=== PATIENT | female | born 1945 | race Caucasian/White ===

== ENCOUNTER 2019-12-08 08:00 | Outpatient (CLI) | payer MEDICARE, MEDICAID, SELFPAY ==
--- NOTE | 2019-12-08 08:17 | PCRCNOTE ---
PATIENT REFUSED ABG
--- NOTE | 2019-12-12 14:11 | WPDSIXMINUTE ---
Six Minute Walk Six Minute Walk: The patients O2 sats started at 93% and dropped as low as 93% on RA Total walk distance 121.92 meters conclusion: This patient does not qualify for home oxygen therapy
--- NOTE | 2019-12-12 14:12 | WPDPFTINT ---
PFT Interpretation PFT Interpretation: This PFT met all criteria for ATS standards and reproducibility FEV/FVC post bronchodilator 68% of predicted FEV1 118% or 1.77 liters FVC 107% or 2.39 liters TLC 108% or 4.26 liters RV 113% RV/TLC 44% DLCO 58% or 11.8 liters when adjusted for alveolar volume but not adjusted for hemoglobin Flow volume loops showed some mild expiratory coving Impression: Mild obstructive ventilatory defect with moderately reduced diffusion capacity. Clinical correlation is advised.
== END 2019-12-08 08:01 | disposition home or self-care (01) ==
PROVIDERS: PCP Internal Medicine Infectious Disease; Visit Provider Internal Medicine Critical Care Medicine
DX: R06.02 Shortness of breath (principal)
CPT/HCPCS: 36600; 94060; 94726; 94729

== ENCOUNTER 2021-09-18 09:53 | Outpatient (CLI) | payer MEDICARE, MEDICAID, SELFPAY | END 2021-09-18 09:54 | disposition home or self-care (01) | LOC: ANHBWCAUD 09:55 | PROVIDERS: PCP Internal Medicine Infectious Disease; Visit Provider Internal Medicine Infectious Disease | DX: H90.3 Sensorineural hearing loss, bilateral (principal) | CPT/HCPCS: 92557; 92567 ==

== ENCOUNTER 2021-12-21 10:00 | Outpatient (RCR) | payer MEDICARE, MEDICAID, SELFPAY | END 2021-12-31 23:59 | disposition home or self-care (01) | LOC: ANHBWCAUD 10:00 | PROVIDERS: PCP Internal Medicine Infectious Disease | DX: Z46.1 Encounter for fitting and adjustment of hearing aid (principal) | CPT/HCPCS: 99199; V5160; V5260 ==

== ENCOUNTER 2022-05-07 09:00 | Outpatient (RCR) | payer MEDICARE, MEDICAID, SELFPAY | END 2022-07-22 23:59 | disposition home or self-care (01) | LOC: ANHBWCAUD 09:00 | PROVIDERS: PCP Internal Medicine Infectious Disease; Visit Provider Internal Medicine Infectious Disease | DX: Z46.1 Encounter for fitting and adjustment of hearing aid (principal) | CPT/HCPCS: 99199 ==